=== PATIENT | female | born 2005 | race Caucasian/White ===

== ENCOUNTER 2023-11-27 20:33 | Emergency (ER) | payer OTHER ==
[~2023-11-27] VITALS: Ht 160 cm; Wt 65.8 kg
[2023-11-27 20:37] VITALS: BP 112/78; PULSE 105; RESP 16; TEMP 99.4; O2SAT 100
[2023-11-28] MEDS ORDERED: BENZ200C4 PO (00:42)
[2023-11-28] MEDS ORDERED: AMOX-1230 PO (00:42)
== END 2023-11-28 00:50 | disposition home or self-care (01) ==
LOC: MED 20:33
DX: J20.9 Acute bronchitis, unspecified (principal); Z79.899 Other long term (current) drug therapy
CPT/HCPCS: 99283

== ENCOUNTER 2024-03-03 13:57 | Emergency (ER) | payer OTHER ==
[~2024-03-03] VITALS: Ht 160 cm; Wt 65.8 kg
[~2024-03-03 13:57] MED LIST: AMOX-1230 PO; BENZ200C4 PO
[2024-03-03 14:16] VITALS: BP 117/80; PULSE 78; RESP 18; TEMP 98.4; O2SAT 98
== END 2024-03-03 15:13 | disposition home or self-care (01) ==
LOC: MED 13:57
DX: S90.112A Contusion of left great toe without damage to nail, initial encounter (principal); Z79.2 Long term (current) use of antibiotics; Z79.899 Other long term (current) drug therapy; W01.198A Fall on same level from slipping, tripping and stumbling with subsequent striking against other object, initial encounter; Y93.89 Activity, other specified; Y92.89 Other specified places as the place of occurrence of the external cause; Y99.8 Other external cause status
CPT/HCPCS: 73660; 99283